=== PATIENT | male | born 2000 | race Caucasian/White ===

== ENCOUNTER 2023-09-28 19:45 | Emergency (ER) | payer OTHER, SELFPAY ==
[2023-09-28] VITALS (32 sets, daily range): BP systolic 80–115; BP diastolic 47–74; PULSE 63–88; RESP 16–18; TEMP 36.9; O2SAT 94–100; BMI 19.5
--- NOTE | 2023-09-28 20:09 | ED_ITS ---
HPI - General Adult General Date Seen: 09/28/23 Chief complaint: Seizure Stated complaint: Seizure Time Seen by Provider: 09/28/23 20:06 History of Present Illness HPI narrative: This is a 23-year-old gentleman with a known history of a seizure disorder, also left ear deafness, right-sided hemiplegic cerebral palsy, presenting to the ER today by EMS after a generalized tonic-clonic seizure. The patient does have a known seizure disorder. He rarely has generalized seizures. His last ?big? seizure was in April. Prior to that he had not had a generalized seizure in a couple of years. He was at home, and his family living room this evening when he had a seizure. This seizure lasted about 13 minutes. Family did hit his typical seizures care and safety precautions. Since the seizure was not stopping they gave him 3 doses of his rescue medication (clonazepam). After the seizure stopped he was initially confused and drowsy and postictal. He also had trouble moving his right arm after the seizure. This is not been seen with his other seizures. His parents called 911 because of the right arm weakness and the length of his seizure. He did not fall or injure himself during the seizure. By the time paramedics arrived the patient was still drowsy but improving. He was moving his right arm symmetrically with the left. Blood sugar was 90. In route he has been stable and has had steady improvement in his mental status. He is complaining of a headache which is typical for him after he has a seizure. No other injuries or pain. He has not had any recent fever. No recent illness. No vomiting or diarrhea. In addition to his generalized seizures he also experiences much more frequent absent seizures. It sounds like these can happen a couple of times a day or sometimes a couple of times a week. He is working with his neurology team at [facility] to manage the absence seizures. They are in the process of weaning him down off Breviac and weaning him up on lacosamide. He has been doing the weaning and initiation process over the past 4 months. He is also on Xcopri and he has not changed the dose of that medication lately. He believes he has been taking all of his prescribed medications. Dad has his pill organized her with him. There is not actually any Xcopri in the slots for this week but he was due to restocking his organizer gwendolyn. It is unclear whether not he remember to take his Xcopri the past couple of days or if he for got. Related Data Home Medications Medication Instructions Recorded Confirmed brivaracetam 100 mg tablet 100 mg PO BID 05/19/23 05/19/23 (Briviact) cenobamate 200 mg tablet (Xcopri) 200 mg PO BID 05/19/23 05/19/23 Previous Rx's Medication Instructions Recorded azithromycin 500 mg tablet 500 mg PO QDAY #3 tabs 05/19/23 prochlorperazine maleate 10 mg 10 mg PO TID PRN #10 tabs 09/29/23 tablet (Compazine) Allergies Allergy/AdvReac Type Severity Reaction Status Date / Time No Known Drug Allergies Allergy Verified 05/19/23 09:27 [facility] Medical History (Updated 09/29/23 @ 00:45 by Kj Burch MD) History of bacterial meningitis ?Z86.61 - Personal history of infections of the central nervous system (ICD- 10) Surgical History (Updated 04/28/23 @ 09:37 by Rajni Cano) History of hernia repair ?Z98.890 - Other specified postprocedural states (ICD-10) ?Z87.19 - Personal history of other diseases of the digestive system (ICD-10) History of placement of ear tubes ?Z96.22 - Myringotomy tube(s) status (ICD-10) Acquired cavovarus deformity of right foot (09/09/10) ?M21.6X1 - Other acquired deformities of right foot (ICD-10) History of ventriculoperitoneal shunting ?Z92.89 - Personal history of other medical treatment (ICD-10) Exam Narrative: Exam Narrative: Primary Survey: A- patent. Speaking clearly. Phonation normal. No stridor. B- breathing easily. Lung sounds clear and equal. Oxygen saturation normal on room air C- no active bleeding. Blood pressure stable. Symmetric pulses and cap refill in 4 extremities. D- alert and oriented x3. GCS 15. No focal deficits. Constitutional: Appears well-developed and well-nourished. Alert. Conversant. Non toxic. HENT: Head: Atraumatic. Nose: Nose normal. Mouth/Throat: Oral mucosa is clear and moist. no trismus. Pharynx normal. Tonsils symmetric. No tonsillar enlargement, erythema, or exudate. Eyes: Complaining of light sensitivity and photophobia so we turned the lights in his room off. Conjunctivae normal. EOM normal. Pupils equal, round, and reactive to light. No scleral icterus. Neck: Normal range of motion. Neck supple. No tracheal deviation present. Cardiovascular: Normal rate, regular rhythm. No gallop. No friction rub. No murmur heard. Symmetric radial artery pulses Pulmonary/Chest: Effort normal. No stridor. No respiratory distress. No wheezes. No rales. No rhonchi . No tenderness. Abdominal: Soft. No distension. No mass. No tenderness. No rebound. No guarding. Musculoskeletal: RUE: Normal range of motion. No tenderness. No deformity LUE: Normal range of motion. No tenderness. No deformity RLE: Normal range of motion. No edema. No tenderness. No deformity LLE: Normal range of motion. No edema. No tenderness. No deformity Lymph: No cervical adenopathy. Neurological: Mental status normal. Attention normal. Alert and oriented x3. GCS 15. Memory normal. Speech fluent. Cognition normal. Cranial Nerves intact II-XII except I did not formally test gag or visual acuity . EOMI. Palate elevates symmetrically and tongue protrudes in the midline. Strength: 5/5 trapezius on the right and left 5/5 deltoid on the right and left 5/5 biceps on the right and left 5/5 triceps on the right and left 5/5 memorial mason on the right and left 5/5 thumb opposition on the right and le ft 5/5 finger abduction on the right and le ft 5/5 hip flexors (L3) on the right and le ft 5/5 quadriceps (L4) on the right and lef t 5/5 tibialis anterior on the right and l eft 5/5 EHL (L5) on the right and left 5/5 gastrocnemius (S1) on the right and left 5/5 hamstring on the right and left Sensation intact to light touch in both upper extremities (C4-T1) Sensation intact to light touch in Both lower extremities (L4-S1). Finger to nose and coordination normal. Skin: Skin is warm and dry. No rash noted. No pallor. Normal capillary refill. Psychiatric: Normal mood. Normal affect. Const: Vital Signs, click to edit/add: Vital Signs - 24 hr 09/28/23 19:49 09/28/23 19:59 09/28/23 20:00 Temperature 98.5 F Pulse Rate 80 77 Pulse Rate [Left P ulse Oximeter] 79 Respiratory Rate 18 Blood Pressure Blood Pressure [Ri ght Upper Arm] 115/66 Pulse Oximetry 100 100 100 Oxygen Delivery Vt thod Room Air 09/28/23 20:02 09/28/23 20:15 09/28/23 20:33 Temperature Pulse Rate 77 77 70 Pulse Rate [Left P ulse Oximeter] Respiratory Rate Blood Pressure 108/68 92/72 Blood Pressure [Ri ght Upper Arm] Pulse Oximetry 100 100 100 Oxygen Delivery Me thod 09/28/23 20:34 09/28/23 20:42 09/28/23 20:51 Temperature Pulse Rate 72 65 Pulse Rate [Left P ulse Oximeter] Respiratory Rate Blood Pressure 94/65 Blood Pressure [Ri ght Upper Arm] Pulse Oximetry 100 100 Oxygen Delivery Vt thod 09/28/23 21:00 09/28/23 21:02 09/28/23 21:15 Temperature Pulse Rate 72 66 66 Pulse Rate [Left P ulse Oximeter] Respiratory Rate Blood Pressure 105/65 Blood Pressure [Ri ght Upper Arm] Pulse Oximetry 100 100 96 Oxygen Delivery Vt thod 09/28/23 21:22 09/28/23 21:30 09/28/23 21:41 Temperature Pulse Rate 66 67 77 Pulse Rate [Left P ulse Oximeter] Respiratory Rate Blood Pressure 104/68 99/74 Blood Pressure [Ri ght Upper Arm] Pulse Oximetry 94 98 100 Oxygen Delivery Vt thod 09/28/23 21:45 09/28/23 22:00 09/28/23 22:02 Temperature Pulse Rate 69 67 68 Pulse Rate [Left P ulse Oximeter] Respiratory Rate Blood Pressure 105/71 Blood Pressure [Ri ght Upper Arm] Pulse Oximetry 100 99 97 Oxygen Delivery Vt thod 09/28/23 22:15 09/28/23 22:22 09/28/23 22:30 Temperature Pulse Rate 63 70 68 Pulse Rate [Left P ulse Oximeter] Respiratory Rate Blood Pressure 109/73 Blood Pressure [Ri ght Upper Arm] Pulse Oximetry 96 97 96 Oxygen Delivery Vt thod 09/28/23 22:42 09/28/23 22:45 09/28/23 23:09 Temperature Pulse Rate 69 67 Pulse Rate [Left P ulse Oximeter] Respiratory Rate 16 Blood Pressure Blood Pressure [Ri ght Upper Arm] Pulse Oximetry 97 96 Oxygen Delivery Me thod Course Course ED Course: Patient arrived by EMS and was roomed to ER bed 6. History was taken from paramedics as he arrived. Patient was alert. No seizure activity. No focal deficits. Previously noted right upper extremity weakness had resolved. Postictal phase seemed to be clearing. He was complaining of a headache and nausea, photophobia. Discussed with Neurology, Dr. Hinds, from [facility]. He would recommend that since the patient has recovered from his generalized tonic-clonic seizure and and is now recovering from postictal spell it is safe to discharge home with outpatient follow-up for medication adjustment. Would not recommend any additional medication adjustments while the patient is here in the ER. He wants us to be sure the patient receives his typical evening dose of anti epileptics while he is in the ER Due to nausea he was not able to take oral ibuprofen so we gave him Toradol and IV Zofran. With this nausea was somewhat improved but he still had ongoing headache. He was able to tolerate all of his home medications. No further vomiting. Reevaluation(s) Reevaluation #1: Recheck-parents now arrived. Additional history obtained from them. Still having headache. Says this is typical for him after he has a generalized tonic clonic seizure. Nothing unusual about the headache. No stiff neck. No fever. Discussed options for treating the headache. He agreed to try Compazine/Benadryl Recheck-starting to feel better. Reevaluation #2: Recheck-headache improved. Feeling much better. He has been here in the ER now for over 4 hours without any recurrent seizure activity. Patient requesting discharge. He and his mother are comfortable with discharging . They will follow-up outpatient with their neurology team at [facility]. Vital Signs Vital signs: Initial Vital Signs Temperature 98.5 F 09/28/23 19:49 Temperature Source Temporal Artery Scan 09/28/23 19:49 Pulse Rate 79 09/28/23 19:49 Pulse Rhythm Regular 09/28/23 19:49 Respiratory Rate 18 09/28/23 19:49 Blood Pressure 115/66 09/28/23 19:49 Blood Pressure Mean 82 09/28/23 19:49 Blood Pressure Position Semi-Fowlers 09/28/23 19:49 Pulse Oximetry 100 09/28/23 19:49 Oxygen Delivery Method Room Air 09/28/23 19:49 Vital Signs Temperature 98.5 F 09/28/23 19:49 Pulse Rate 79 09/28/23 19:49 Respiratory Rate 18 09/28/23 19:49 Blood Pressure 115/66 09/28/23 19:49 Pulse Oximetry 100 09/28/23 19:49 Oxygen Delivery Method Room Air 09/28/23 19:49 Temperature 98.5 F 09/28/23 19:49 Pulse Rate 67 09/28/23 22:45 Respiratory Rate 16 09/28/23 23:09 Blood Pressure 109/73 09/28/23 22:22 Pulse Oximetry 96 09/28/23 22:45 Oxygen Delivery Method Room Air 09/28/23 19:49 Medications Administered Medications: Discontinued Medications Generic Name Dose Route Start Last Admin Trade Name Freq PRN Reason Stop Dose Admin Diphenhydramine HCl 12.5 mg 09/28/23 21:50 09/28/23 22:06 Diphenhydramine 50 Mg/Ml Inj IVP 09/28/23 21:51 12.5 mg ONCE ONE Administration Ibuprofen 600 mg 09/28/23 20:06 09/28/23 20:25 Ibuprofen 600 Mg Tablet PO 09/28/23 20:07 Not Given ONCE ONE Ketorolac Tromethamine 15 mg 09/28/23 20:24 09/28/23 20:33 Ketorolac 15 Mg/Ml Inj IVP 09/28/23 20:25 15 mg ONCE ONE Administration Ondansetron HCl 4 mg 09/28/23 20:13 09/28/23 20:19 Ondansetron 2 Mg/Ml Inj IVP 09/28/23 20:14 4 mg ONCE ONE Administration Prochlorperazine 10 mg 09/28/23 21:50 09/28/23 22:07 Prochlorperazine 5 Mg/Ml Vial IV 09/28/23 21:51 10 mg ONCE ONE Administration Medical Decision Making MDM Narrative Medical decision making narrative: Pleasant 23-year-old gentleman with a known history of seizure disorder presenting to the ER today by EMS with a fairly long 13 minute generalized tonic-clonic seizure. He was treated 3 doses of his typical rescue benzodiazepine by his parents and seizure activity had resolved prior to EMS arrival. He was initially postictal and having what appeared to be Damion's paralysis with weakness of his right upper extremity but those symptoms have resolved here in the ER. At this point I do not think he needs neuro imaging or MRI to look for stroke with no ongoing neuro deficits. No ongoing seizure activity while here in the ER. Observed for 4-1/2 hours. We are not able to obtain med levels for any of his medications in our lab that would come back to to us tonight. Consult was made with history Neurology team through [facility]. Although he had recovered from his seizure and was regaining his mental status by the time he arrived to the ER, he was still complaining of headache and nausea. Differential for this would be broad including intracranial injury from the seizure, spontaneous ICH, malfunction of MIRROR FABRICATION SUPERVISOR shunt, meningitis, among others. However the patient strongly endorse that it is typical for him to get a headache like this after seizure. We treated his headache with Toradol, then Compazine and Benadryl with good resolution. We observed the patient for several hours. Headache and nausea have resolved. He feels back to baseline. At this point would hold off on further workup with head CT, spinal tap, laps at this point, given resolve symptoms. He will follow-up tomorrow by phone with his neurology team at [facility]. Discharge Plan Discharge Clinical Impression: Epileptic seizure, Headache Patient Disposition: Home, Self-Care Condition: Stable Instructions: Epilepsy (DC) Additional Instructions: Please continue on your seizure medications tonight and in the morning. Call your neurologist at [place] tomorrow morning to discuss this seizure and discuss your current medications switch. Your neurologist can make recommendations about what to do with your seizure medications and dosings. If you have recurrent headache, nausea or vomiting, any fever, confusion, any more seizure activity, or any problems, please come back to the ER or see your neurologist right away. Prescriptions: New prochlorperazine maleate [Compazine] 10 mg tablet 10 mg PO TID PRNQty: 10 0RF No Action Briviact 100 mg tablet 100 mg PO BID Xcopri 200 mg tablet 200 mg PO BID azithromycin 500 mg tablet 500 mg PO QDAY Qty: 3 0RF Rx Instructions: For self-treatment of traveller's diarrhea not helped with over the counter medications Follow Up/Referrals: Rome Thomas MD [Primary Care Provider] - Stand Alone Forms: [employer] Info Instructions
--- OUTSIDE RECORDS SUMMARY | 2023-09-28 20:18 | XMS_ITS | Referral Summary ---
Author Name Unknown Organization [facility] Address [address] [place] [id number] Care Team Providers Care Wood Machinist Name Role Phone Elsewhere, Pcp Primary Care Provider Unavailabl e Source Comments Patient records contain information from all sites at [facility]. For routine questions regarding patient records, call [phone] during business hours, M-F 8:00 AM - 5:00 PM Central Time. Record requests for emergency care only can be directed to [phone] at any time.[facility] Encounters Date Type Department Care Team Description 09/22/2023 Refill Department of Neurology in [address] [id number] Rome Rg M.D. Med Refill 09/13/2023 Clinical Communication Department of Neurology in [address] [phone] Rome Rg M.D. briviact 07/05/2023 4:00 PM MANAGER TERMINAL Office Visit Department of Neurology in [address] [phone] Rome Rg M.D. 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 Active Xcopri 200 mg tabletIndications:Foc al Complex Partial Epilepsy Intractable With Status Epilepticus (HCC) TAKE TWO TABLETS (400mg) BY MOUTH DAILY 180 tablet 3 01/03/2023 Active Briviact 100 mg tablet tabletIndications:Foc al Epilepsy Symptomatic Not Intractable With Status Epilepticus (HCC) TAKE ONE TABLET BY MOUTH TWICE DAILY 180 tablet 3 01/03/2023 Active clonazePAM (KlonoPIN) 0.25 mg disintegrating tabletIndications:Foc al Complex Partial Epilepsy Intractable With Status Epilepticus (HCC) As needed, take 2 tablets for prolonged seizures > 3 minutes. May repeat same dose once if seizure persists an additional 5 minutes. 10 tablet 3 05/02/2023 Active lacosamide (Vimpat) 50 mg tabletIndications:Foc al Epilepsy Symptomatic Intractable With Status Epilepticus (HCC) Wk1- 1 tab nightly; Wk2- 1 tab twice daily; Wk3- 1 tab AM, 2 tabs night; Wk4- 2 tabs twice daily; Wk5-3 tabs twice daily. Wk6- switch to 200 mg tablets, 1 tab twice daily 112 tablet 08/18/2023 Active lacosamide (Vimpat) 200 mg tabletIndications:Foc al Epilepsy Symptomatic Intractable With Status Epilepticus (HCC) 1 tablet twice daily. To be used after completing 50 mg Prescription. 180 tablet 3 08/18/2023 Active brivaracetam (Briviact) 50 mg tabletIndications:Foc al Epilepsy Symptomatic Intractable With Status Epilepticus (HCC) While increasing lacosamide, taper Briviact. 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 No 07/02/2023 Humiliation, Afraid, Rape, and Kick questionnair e Answer Date Recorded Within the last year, have y ou been afraid of your partner or ex-partner? No 12/28/2021 Within the last year, have y ou been humiliated or emotionally abused in other ways by your partner or ex-partner? No Within the last year, have y ou been kicked, hit, slapped, or otherwise physically hurt by your partner or ex-partner? No 12/28/2021 Within the last year, have y ou been raped or forced to have any kind of sexual activity by your partner or ex-partner? No 12/28/2021 Social Connection and Isolation Panel [NHANES] A nswer Date Recorded In a typical week, how many times do you talk on the phone with family, friends, or neighbors? Twice a week 12/28/2021 How often do you get togethe r with friends or relatives? Twice a week 12/28/2021 How often do you attend judaism or taoism serv ices? Never 12/28/2021 Do you belong to any clubs o r organizations such as judaism groups, unions, fraternal or athletic groups, or school groups? No 12/28/2021 How often do you attend meet ings of the clubs or organizations you belong to? Patient declined 12/28/2021 Are you , , di vorced, , never , or living with a partner? Patient declined 12/28/2021 AUDIT-C Answer Date Recorded Q1: How often do you have a drink containing alc ohol? Never 12/28/2021 Average Number of Drinks Not on file 022 Frequency of Binge Drinking Not on file 12/14 Overall Financial Resource Strain (CARDIA) Answe r Date Recorded How hard is it for you to pa y for the very basics like food, housing, medical care, and heating? Not hard at all 12/28/2021 PHQ-2 Answer Date Recorded PHQ-2 Score 0 10/25/2018 [facility] of Occupat ional Health - Occupational Stress Questionnaire Answer Date Recorded Do you feel stress - tense, restless, nervous, or anxious, or unable to sleep at night because your mind is troubled all the time - these days? Not at all 12/28/2021 Exercise Vital Sign Answer Date Recorde d On average, how many days pe r week do you engage in moderate to strenuous exercise (like a brisk walk)? 5 days 07/02/2023 On average, how many minutes do you engage in exercise at this level? 30 min 07/02/2023 Hunger Vital Sign Answer Date Recorded Within the past 12 months, y ou worried that your food would run out before you got the money to buy more. Never true 07/02/19 24 Within the past 12 months, t he food you bought just didn't last and you didn't have money to get more. Never true 07/02/2023 PRAPARE - Transportation Answer Date Re corded In the past 12 months, has l ack of transportation kept you from medical appointments or from getting medications? No 06/16 In the past 12 months, has l ack of transportation kept you from meetings, work, or from getting things needed for daily living? No 07/02/2023 Nutrition Answer Date Recorded Nutrition: EVOO Fat Source No 07/02 On average, how many serving s of fruits and vegetables do you eat per day (serving size is equal to 1 cup or approximately the size of a tennis ball)? 3-5 07/02/2023 Dental Answer Date Recorded Dental: Regular Dentist Yes 05/12/20 Employment Answer Date Recorded Employment status Unemployed/not in th e paid workforce but seeking employment 07/02/2023 Housing Stability Answer Date Recorded What is your living situation today? I have a [facility] place to live 07/02/2023 Education Answer Date Recorded What is the highest level of school you have completed or the highest degree you have received? 12th grade 12/28/2021 Sex and Gender Information Value Date Recorded Sex Assigned at Male 05/17/2018 12:10 PM MANAGER TERMINAL Gender Identity Male 05/17/2018 12:10 PM MANAGER TERMINAL Sexual Orientation Straight 05/17/2018 12 :10 PM MANAGER TERMINAL Last Filed Vital Signs Vital Sign Reading Time Taken Comments Blood Pressure 107/70 12/31/2020 9:00 AM CDT Pulse 70 12/31/2020 9:00 AM CDT Temperature 35.6 ??C (96.1 ??F) 07/05/2023 3:46 PM CS T Respiratory Rate 16 12/31/2020 9:00 AM CDT Oxygen Saturation 100% 12/31/2020 9:00 AM CDT Inhaled Oxygen Concentration - - Weight 62 kg (136 lb 11 oz) 07/05/2023 3:[address] Height 180 cm (5' 10.87) 07/05/2023 3:46 PM MANAGER TERMINAL Body Mass Index 19.14 07/05/2023 3:46 PM MANAGER TERMINAL Plan of Treatment Upcoming Encounters Date Type Department Care Team (Latest Contact Info) Description 10/21/2023 1:15 PM CDT Clinical Communication Virtual Review in [place], [place] [address] [place] [address] 10/24/2023 2:00 PM CDT Clinical Support Department of Neurology in [address] [phone] Rome Rg M.D. [address] [place] [phone] 11/23/2023 3:00 PM CDT Office Visit Department of Neurology in [address] [phone] Rome Rg M.D. [address] [place] [phone] Medical Devices Implanted Type Area Waiter/Waitress Cocktail Lounge Device Identifier Shelf Expiration Date Model / Serial / Lot [employer] Shunt Implanted:04/04 (Quantity not on file) Shunt Other Brain Description:COURTESY CLERK Shunt Advance Directives For more information, please contact: [phone] * Full Code (Latest Code Status on File) Date Activated Date Inactivated Comments 12/30/2020 8:19 AM 12/31/2020 2:28 PM Question Answer Comments Full Code: Discussed Care Teams Wood Machinist Relationship Specialty Start Date End Date Elsewhere, Pcp PCP - General Family Medicine 06/30/23
--- OUTSIDE RECORDS SUMMARY | 2023-09-28 20:18 | XMS_ITS | Encounter Summary ---
Author Name Unknown Organization [facility] Address [address] [place] [address] Care Team Providers Care Production Control Scheduler Name Role Phone Elsewhere, Pcp Primary Care Provider Unavailabl e Reason for Visit * Reason Onset Date Comments briviact 09/13/2023 Encounter Details Date Type Department Care Team (Late st Contact Info) Description 09/13/2023 Clinical Communication Department of Neurology in [place], [place] [address] [place] [phone] Rome Rg M.D. [address] [place] [address] briviact Social History Tobacco Use Types Packs/Day Years Used Date Smoking Tobacco: Never Smokeless Tobacco: Never Alcohol Use Standard Drinks/Week Comments No 0 (1 standard drink = 0.6 oz pur e alcohol) [facility] Utilities Answer Date Recorded In the past 12 months has [facility] [employer], gas, oil, or water [employer] threatened to shut off services in your [...] week 12/28/2021 How often do you attend scientology or rastafari serv ices? Never 12/28/2021 Do you belong to any clubs o r organizations such as scientology groups, unions, fraternal or athletic groups, or [...] Answer Date Recorded PHQ-2 Score 0 10/25/2018 [facility] Occupat [facility] - Occupational Stress Questionnaire Answer Date Recorded [...] your living situation today? I have a [facility] place to live 07/02/2023 Education Answer Date Recorded What is the highest level of school you have completed or the highest degree you have received? 12th grade 12/28/2021 Sex and Gender Information Value Date Recorded Sex Assigned at Male 05/17/2018 12:10 PM DIMENSION SPECIFICATION INSPECTOR Gender Identity Male 05/17/2018 12:10 PM DIMENSION SPECIFICATION INSPECTOR Sexual Orientation Straight 05/17/2018 12 :10 PM DIMENSION SPECIFICATION INSPECTOR documented as of this encounter Miscellaneous Notes * Telephone Encounter - Dhara Robledo RClovisN. - 09/13/2023 1:26 PM CDT I contacted the pharmacy and reviewed Dr. Skinner's recommendations. documented in this encounter Plan of Treatment Upcoming Encounters Date Type Department Care Team (Latest Contact Info) Description 10/21/2023 1:15 PM CDT Clinical Communication Virtual Review in [place], [place] 200 [place] [address] 10/24/2023 2:00 PM CDT Clinical Support Department of Neurology in [place], [place] [address] [place] [phone] Rome Rg M.D. [address] [place] [phone] 11/23/2023 3:00 PM CDT Office Visit Department of Neurology in [place], [place] [address] [place] [address] Rome Rg M.D. [address] [place] [address] documented as of this encounter Visit Diagnoses Not on filedocumented in this encounter Additional Health Concerns Assessment Noted Time PHQ-9 Depression Total Score: 0 11/23/19 19 10:54 AM CDT documented as of this encounter Care Teams Production Control Scheduler Relationship Specialty Start Date End Date Elsewhere, Pcp PCP - General Family Medicine 06/30/23 documented as of this encounter
--- OUTSIDE RECORDS SUMMARY | 2023-09-28 20:18 | XMS_ITS | Encounter Summary ---
Author Name Unknown Organization [facility] Address [address] [place] [address] Care Team Providers Care Branch Credit Counselor Name Role Phone Elsewhere, Pcp Primary Care Provider Unavailabl e Reason for Visit * Reason Onset Date Comments Pre-visit Intake 06/30/2023 Encounter Details Date Type Department Care Team (Latest Contact Info) Description 06/30/2023 9:00 AM SURFACE WATER TECHNICIAN Clinical Communication Virtual Review in [place], [place] 200 [place] [address] Pre-visit Intake Social History Tobacco Use Types Packs/Day Years Used Date Smoking Tobacco: Never Smokeless Tobacco: Never Tobacco Cessation:Counseling Given: Not Answered Alcohol Use Standard Drinks/Week Comments No 0 (1 standard drink = 0.6 oz pur e alcohol) Humiliation, Afraid, Rape, and Kick questionnair e [...] week 12/28/2021 How often do you attend protestant or hoahaoism serv ices? Never 12/28/2021 Do you belong to any clubs o r organizations such as protestant groups, unions, fraternal or athletic groups, or [...] Answer Date Recorded PHQ-2 Score 0 10/25/2018 [facility]at ional [facility] - Occupational Stress [...] to strenuous exercise (like a brisk walk)? 6 days 12/28/2021 On average, how many minutes do you engage in exercise at this level? 120 min 12/28/2021 Hunger Vital Sign Answer Date Recorded Within the past 12 months, y ou worried that your food would run out before you got the money to buy more. Patient declined Within the past 12 months, t he food you bought just didn't last and you didn't have money to get more. Patient declined 03/2021 PRAPARE - Transportation Answer Date Re corded In the past 12 months, has l ack of transportation kept you from medical appointments or from getting medications? No 12/14 In the past 12 months, has l ack of transportation kept you from meetings, work, or from getting things needed for daily living? No 12/28/2021 Housing Stability Vital Sign Answer Jim e Recorded In the last 12 months, was t here a time when you were not able to pay the mortgage or rent on time? Patient refused 12/29/19 In the last 12 months, how many places have you lived? 2 12/28/2021 In the last 12 months, was t here a time when you did not have a steady place to sleep or slept in a nursing home (including now)? No 12/28/2021 Nutrition Answer Date Recorded Nutrition: EVOO Fat Source No 12/28 On average, how many serving s of fruits and vegetables do you eat per day (serving size is equal to 1 cup or approximately the size of a tennis ball)? 2-3 12/28/2021 Dental Answer Date Recorded Dental: Regular Dentist Yes 05/12/20 Employment Answer Date Recorded Employment status Employed and actively working without restrictions 12/28/2021 Education Answer Date Recorded What is the highest level of school you have completed or the highest degree you have received? 12th grade 12/28/2021 Sex and Gender Information Value Date Recorded Sex Assigned at Male 05/17/2018 12:10 PM SURFACE WATER TECHNICIAN Gender Identity Male 05/17/2018 12:10 PM SURFACE WATER TECHNICIAN Sexual Orientation Straight 05/17/2018 12 :10 PM SURFACE WATER TECHNICIAN documented as of this encounter Plan of Treatment Upcoming Encounters Date Type Department Care Team (Latest Contact Info) Description 10/21/2023 1:15 PM CDT Clinical Communication Virtual Review in [place], [place] 200 [place] [address] 10/24/2023 2:00 PM CDT Clinical Support Department of Neurology in [place], [place] [address] [place] [phone] Rome Rg M.D. [address] [place] [phone] 11/23/2023 3:00 PM CDT Office Visit Department of Neurology in [address] [phone] Rome Rg M.D. [address] [place] [phone] documented as of this encounter Visit Diagnoses Not on filedocumented in this encounter Additional Health Concerns Assessment Noted Time PHQ-9 Depression Total Score: 0 11/23/19 19 10:54 AM CDT documented as of this encounter Care Teams Branch Credit Counselor Relationship Specialty Start Date End Date Elsewhere, Pcp PCP - General Family Medicine 06/30/23 documented as of this encounter
--- OUTSIDE RECORDS SUMMARY | 2023-09-28 20:18 | XMS_ITS | Clinical Summary ---
Author Name Unknown Organization [facility] Address [address] [place] [address] Care Team Providers Care Flute Grinder Name Role Phone Elsewhere, Pcp Primary Care Provider Unavailabl e Source Comments Patient records contain information from all sites at [facility]. For routine questions regarding patient records, call [phone] during business hours, M-F 8:00 AM - 5:00 PM Central Time. 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 Med Refill 09/13/2023 Clinical Communication Department of Neurology in [address] [phone] Isaiah Rg M.D. briviact 07/05/2023 4:00 PM WOODWORKING MACHINIST Office Visit Department of Neurology in [address] [phone] Isaiah Rg M.D. 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) 06/30/2023 9:00 AM WOODWORKING MACHINIST Clinical Communication Virtual Review in [address] [phone] Pre-visit Intake from Last 3 Months Family History Medical History Relation Name Comments Asthma Father isaiah Prostate cancer Father isaiah Hypertension Father's Brother Diego Parkinsonism Father's Sister Lesa Colon cancer Maternal Grandfather Lupillo Arthritis Paternal Grandfather Don Hypertension Paternal Grandfather Don Arthritis Paternal Grandmother Qi Bleeding Disorder Paternal Grandmother Qi Diabetes Paternal Grandmother Qi Hyperlipidemia Paternal Grandmother Qi Relation Name Status Comments Father isaiah Father's Brother Diego Father's Sister Lesa Maternal Grandfather Lupillo Paternal Grandfather Don Paternal Grandmother Qi Social History Tobacco Use Types Packs/Day Years Used Date Smoking Tobacco: Never Smokeless Tobacco: Never Tobacco Cessation:Counseling Given: Not Answered Alcohol Use Standard Drinks/Week Comments No 0 (1 standard drink = 0.6 oz pur e alcohol) [facility] Utilities Answer Date Recorded In the past 12 months has e [employer], gas, oil, or water [employer] threatened to shut off services in your [...] week 12/28/2021 How often do you attend quaker or uatsdin serv ices? Never 12/28/2021 Do you belong to any clubs o r organizations such as quaker groups, unions, fraternal or athletic groups, or [...] Answer Date Recorded PHQ-2 Score 0 10/25/2018 [facility] Occupat ional Health - Occupational Stress [...] your living situation today? I have a [facility] place to live 07/02/2023 Education Answer Date Recorded What is the highest level of school you have completed or the highest degree you have received? 12th grade 12/28/2021 Sex and Gender Information Value Date Recorded Sex Assigned at Male 05/17/2018 12:10 PM WOODWORKING MACHINIST Gender Identity Male 05/17/2018 12:10 PM WOODWORKING MACHINIST Sexual Orientation Straight 05/17/2018 12 :10 PM WOODWORKING MACHINIST Last Filed Vital Signs Vital Sign Reading [...] 180 cm (5' 10.87) 07/05/2023 3:46 PM WOODWORKING MACHINIST Body Mass Index 19.14 07/05/2023 3:46 PM WOODWORKING MACHINIST Plan of Treatment Upcoming Encounters Date Type Department Care Team (Latest Contact Info) Description 10/21/2023 1:15 PM CDT Clinical Communication Virtual Review in [place], [place] 200 [place] [address] 10/24/2023 2:00 PM CDT Clinical Support Department of Neurology in [address] [phone] Isaiah Rg M.D. [address] [place] [phone] 11/23/2023 3:00 PM CDT Office Visit Department of Neurology in [address] [phone] Isaiah Rg M.D. [address] [place] [phone] Health Maintenance Due Date Last Done Comments Hepatitis C Screening 2000 COVID-19 Vaccine ( season) 2023 05/27/2022, 04/11/2021 Influenza Vaccine (#1) 2023 , 02/27/2019, 03/28/2018, Additional history exists Depression Screening (Annual PHQ-2) 05/16/2023 DTaP,Tdap,and Td Vaccines (8 - Td or Tdap) 05/19/2033 05/19/2023, 11/29/2012, 12/14/2005, Additional history exists Hepatitis B Vaccines Completed 08/15/2001, 2000, 2000 Pneumococcal vaccine (0-64 years) Aged Out 08/15/2001, 2000, 2000, Additional history exists No longer eligible based on patient's age to complete this topic HPV Vaccines Completed 05/21/2019, 10/15, 09/25/2018 Medical Devices Implanted Type Area Magnesium Mill Operator Device Identifier Shelf Expiration Date Model / Serial / Lot Pearl Glue Operator Shunt Implanted:04/04 (Quantity not on file) Shunt Other Brain Description:CLINICAL APPLICATION MANAGER Shunt Advance Directives For more information, please contact: [phone] * Full Code (Latest Code Status on File) Date Activated Date Inactivated Comments 12/30/2020 8:19 AM 12/31/2020 2:28 PM Question Answer Comments Full Code: Discussed Care Teams Flute Grinder Relationship Specialty Start Date End Date Elsewhere, Pcp PCP - General Family Medicine 06/30/23
--- OUTSIDE RECORDS SUMMARY | 2023-09-28 20:18 | XMS_ITS ---
Author Name Unknown Organization [facility] Address [address] [place] [address] Care Team Providers Care Uniform Maker Name Role Phone Unavailable Unavailable Unavailable Surgery Details Not on file Complications Check Surgery Details section. Procedure Estimated Blood Loss Check Surgery Details section. Procedure Findings Check Surgery Details section. Procedure Specimens Taken Check Surgery Details section.
--- OUTSIDE RECORDS SUMMARY | 2023-09-28 20:18 | XMS_ITS | Encounter Summary ---
Author Name Unknown Organization [facility] Address [address] [place] [address] Care Team Providers Care Steward/Stewardess Chief Cargo Vessel Name Role Phone Elsewhere, Pcp Primary Care Provider Unavailabl e Reason for Visit * Reason Comments Med Refill Encounter Details Date Type Department Care Team (Late st Contact Info) Description 09/22/2023 Refill Department of Neurology in [place], [place] [address] [place] [phone] Rome Rg M.D. [address] [place] [address] Med Refill Social History Tobacco Use Types Packs/Day Years Used Date Smoking Tobacco: Never Smokeless Tobacco: Never Alcohol Use Standard Drinks/Week Comments No 0 (1 standard drink = 0.6 oz pur e alcohol) [facility] Utilities Answer Date Recorded In the past 12 months has [facility] [employer], gas, oil, or water [employer]) threatened to shut off services in your [...] week 12/28/2021 How often do you attend yazdanism or hoahaoism serv ices? Never 12/28/2021 Do you belong to any clubs o r organizations such as yazdanism groups, unions, fraternal or athletic groups, or [...] Answer Date Recorded PHQ-2 Score 0 10/25/2018 [facility] of Occupat ional Health - [...] Answer Date Recorded Employment status Unemployed/not in e paid workforce but seeking employment 07/02/2023 Housing Stability Answer Date Recorded What is your living situation today? I have a [facility] place to live 07/02/2023 Education Answer Date Recorded What is the highest level of school you have completed or the highest degree you have received? 12th grade 12/28/2021 Sex and Gender Information Value Date Recorded Sex Assigned at Male 05/17/2018 12:10 PM GREEN BELT Gender Identity Male 05/17/2018 12:10 PM GREEN BELT Sexual Orientation Straight 05/17/2018 12 :10 PM GREEN BELT documented as of this encounter Plan of Treatment Upcoming Encounters Date Type Department Care Team (Latest Contact Info) Description 10/21/2023 1:15 PM CDT Clinical Communication Virtual Review in [place], [place] 200 [place] [address] 10/24/2023 2:00 PM CDT Clinical Support Department of Neurology in [place], [place] [address] [place] [phone] Rome Rg M.D. [address] [place] [phone] 11/23/2023 3:00 PM CDT Office Visit Department of Neurology in [place], [place] [address] [place] [phone] Rome Rg M.D. [address] [place] [phone] documented as of this encounter Visit Diagnoses Diagnosis Focal Epilepsy Symptomatic Intractable With Status Epilepticus (HCC) documented in this encounter Additional Health Concerns Assessment Noted Time PHQ-9 Depression Total Score: 0 11/23/19 19 10:54 AM CDT documented as of this encounter Care Teams Steward/Stewardess Chief Cargo Vessel Relationship Specialty Start Date End Date Elsewhere, Pcp PCP - General Family Medicine 06/30/23 documented as of this encounter
--- OUTSIDE RECORDS SUMMARY | 2023-09-28 20:18 | XMS_ITS | Encounter Summary ---
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 [address] [place] [phone] [facility] Referral ID Status Reason Start Date Expiration Date Visits Re quested Visits Authorized [id number] Closed 12/21/2022 12/20/2025 1 1 Encounter Details Date Type Department Care Team ([facility] st Contact Info) Description 07/05/2023 4:00 PM SHEET CUTTER Office Visit Department of Neurology in [place], [place] [address] [place] [phone] Rome Rg M.D. 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 Never 12/28/2021 Do you belong to any clubs o r organizations such as latter day groups, unions, fraternal or athletic groups, or [...] Answer Date Recorded PHQ-2 Score 0 10/25/2018 [facility] - Occupational Stress [...] your living situation today? I have a [facility] place to live 07/02/2023 Education Answer Date Recorded What is the highest level of school you have completed or the highest degree you have received? 12th grade 12/28/2021 Sex and Gender Information Value Date Recorded Sex Assigned at Male 05/17/2018 12:10 PM SHEET CUTTER Gender Identity Male 05/17/2018 12:10 PM SHEET CUTTER Sexual Orientation Straight 05/17/2018 12 :10 PM SHEET CUTTER documented as of this encounter Last Filed Vital Signs Vital Sign Reading Time Taken Comments Blood Pressure - - Pulse - - Temperature 35.6 ??C (96.1 ??F) 07/05/2023 3:46 PM CS T Respiratory Rate - - Oxygen Saturation - - Inhaled Oxygen Concentration - - Weight 62 kg (136 lb 11 oz) 07/05/2023 3:[address] Height 180 cm (5' 10.87) 07/05/2023 3:46 PM SHEET CUTTER Body Mass Index 19.14 07/05/2023 3:46 PM SHEET CUTTER documented in this encounter Progress Notes * Rome Rg M.D. 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 SEIZURE SEMIOLOGY Initial visit in Dr. Alarcon' clinic note 05/17/2018 for further details. Age of onset: . Controlled with phenobarbital x 1 year, then seizure free for another 3 years off AEDs. Initial seizure 1) Visual aura of brightly colored light, progressing to behavioral arrest, aphasia, facial twitching, swallowing, eye deviation, and then right arm movements. This could progress to a generalized tonic clonic seizure. These have not occurred for many years. Several years later, these events started after an attempted levetiracetam taper: 2) Bizarre speech, altered awareness and confusion, and involuntary right arm movements. Since cenobamate was added they have not seen the arm-movement motor aspect, just the cognitive aspect (essentially just spacing out). History of status epilepticus, often experiencing seizures of 30-45 minutes duration. Other paroxysms: 1) Non epileptic behavioral outbursts - inactive EPILEPSY EVALUATION Routine EEG: left temporal slowing and left temporal sharp waves (F7/T7). Repeat EEG showed left frontal (F3) spikes in 2019. Brain MRI: None performed recently. Don't have outside images ourselves. EMU in December 2020, recorded over a single day: Left-sided interictal discharges and slowing. 6 recorded seizures. The first 4 have earliest visible changes over the right, primarily temporal. However, the last 2 have a very nice clear rhythm leading in over the left posterior temporal head region (P7/P9) followed by the same pattern and evolution as the first 4. 24-hour ambulatory EEG May 2022 - no seizures 24-hour ambulatory EEG December 2022 - 2 seizures, left temporal PREVIOUS ANTI-SEIZURE MEDICATIONS 1) Phenobarbital - started as a x 1 year. Good efficacy. 2) Levetiracetam up to 1500 mg twice daily - on for many years, changed due to mood side effects. Infrequent seizures while taking it. 3) Depakote in childhood, father thinks he was still having seizures with it 4) Oxcarbazepine 1050 BID - continued seizures 5) Zonisamide - continued seizures (6 recorded in a day on EEG) Has also tried modified keto diet. CURRENT ANTI-SEIZURE MEDICATIONS 1) Briviact 100 mg b.i.d. 2) Cenobamate 200 mg twice daily (total dose since October 14, 2021) - seizure count on ambulatory recording reduced following introduction (6 in 24h vs 0-2 in 24h) Rescue med: clonazepam 0.5 mg ODT (reduced from 1 mg in December 2018 because of dizziness at higher dose) INTERVAL HISTORY He continues to have regular focal impaired awareness seizures (bland - primarily just blanking out) noticed by his parents at least every 3-4 days, per his father (here today). He himself does not recognize them, and based on prior recordings it is assumed that he has more that are not witnessed or personally recognized. He had a tonic-clonic seizure in April when sick with COVID, and that was a one-off event. He had a more prominent focal seizure last week when he was late getting medication in him. He's graduated from college and living at home. His mother notes that he gets tired at around 2pm. He says if he's active this is less of a problem. 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 Lacosamide, Fycompa, topiramate were all reviewed as potential medication changes in place of Briviact. We had previously discussed them at our last visit, as well. Side effects of each were reviewed. We also reviewed potential stimulation options with the understandingthat these are palliative. His quality of life is not significantly impacted by his seizures. Whilehe cannot drive, that is not new and he otherwise does not notice seizures. Most of the time peoplearound him may not notice them either. He's leery of the possibility of making a change and back-sliding into worse seizures, which he experienced in the past with a medication change. He had been seizure free, then had recurrence with tapering and was unable to get control back despite resuming medication. We also discussed tDCS. This would be a bit outside of the norm as an option as we have recorded more than 1 region of onset on past EEGs. He also has a programmable shunt, and I am not sure if that has a bearing on the ability to do tDCS. He's not inclined to make any medication exchanges. He will shift the cenobamate back to 400 mg at night only to see if that helps with daytime tiredness. He has some amount of interest in tDCS potentially. I'll reach out to my neuromodulation colleagues to see about the feasibility of that and will let him know the response in a portal message. We discussed a number of options. Those will be summarized below. Ultimately he opted to continue his current medications but he will split the cenobamate up and take 200 milligrams in the morning and 200 milligrams at night because they mostly notice seizures in the evening before he takes his nighttime dose. It does look like cenobamate has likely been helpful in his seizure frequency as he had6 recorded in the epilepsy monitoring unit in 24 hours in 2020 while on Briviact and zonisamide, and has not had nearly that many recorded in 24 hours again since starting cenobamate at that time. Hehad 1 ambulatory with none recorded in May of this past year, and to it is ambulatory earlier this summer. I would like to see the patient in 6 months with the following prescheduled tests: none. I spent 60 minutes face to face and non-face to face caring for the patient today. T CUTTER documented in this encounter Plan of Treatment Upcoming Encounters Date Type Department Care Team (Latest Contact Info) Description 10/21/2023 1:15 PM CDT Clinical Communication Virtual Review in [place], [place] 200 [place] [phone] 10/24/2023 2:00 PM CDT Clinical Support Department of Neurology in [place], [place] [address] [place] [phone] Rome Rg M.D. [address] [place] [phone] 11/23/2023 3:00 PM CDT Office Visit Department of Neurology in [address] [phone] Rome Rg M.D. 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
--- OUTSIDE RECORDS SUMMARY | 2023-09-28 20:18 | XMS_ITS | Clinical Summary ---
Author Name Unknown Organization [facility] Address [place], [place] [address] Care Team Providers Care Food And Nutrition Teacher Name Role Phone Damion Meraz Primary Care Provider [phone] Allergies No known active allergies Medications Medication Sig Dispensed Refills Start Date End Date Status clonazePAM (KLONOPIN) 1 mg disintegrating tablet DISSOLVE 1 TABLET IN MOUTH NEEDED FOR PROLONGED SEIZURES >3MIN. MAY REPEAT DOSE ONCE IF SEIZURE PERSISTS ANOTHER 5 MINUTES 12/13/2018 Active OXcarbazepine (TRILEPTAL) 300 mg tablet Take 2 tablets by mouth 2 times daily. 0 11/06/2019 Active brivaracetam (BRIVIACT) 100 mg tablet Take 1 tablet by mouth 2 times daily 12 hours apart. 0 11/06/2019 Active Active Problems Problem Noted Date Diagnosed Date Status post ventriculoperitoneal shunt 0 Overview: 03/21/2006 strata valve 2.5 station 12/08/2010 strata valve 2.5 station 12/14/2010 strata valve 1.5 station Seizure disorder Immunizations Name Administration Dates Next Due AMB Influenza, IIV3 (Age >=3 years)(Flu Clinic Only) 02/28/2013,03/13/2008 DT (Age < 7 years) 2000,2000 DTaP 12/14/2005,08/15/2001,03/02/2001 HIB-HepB (Comvax) 08/15/2001,2000,05/19/19 HPV 9 (Gardasil 9) 09/25/2018 Hepatitis A (Peds) 01/26/2013,07/03/2012 Inactivated Polio Vaccine 12/14/2005,,2000,05/19 Influenza A (H1N1), Inactivated 04/01/2009 Influenza Virus, Unspecified 02/10/2009 Influenza, IIV3 (Age 6-35 mos) 4,03/09/2011,04/10/2010,03/09,03/30/2002,02/28/2002 Influenza, IIV3 (Age >=3 years) 03/23/2007,04/20,02/26/2004 Influenza, IIV4 03/28/2018, 7,02/04/2016,03/14 MMR 12/14/2005,04/11/2001 Meningococcal Vaccine (Menveo) 10/05/2016,2013 Pneumococcal conj 7-Valent (Prevnar 7) 0 08/15/2001,2000,2000,05/20 Tdap 11/29/2012 Varicella Vaccine 02/23/2011,04/11/2001 Family History Medical History Relation Name Comments Cancer-pancreatic Father Good Health Father Good Health Mother Relation Name Status Comments Father Alive Mother Alive Social History Tobacco Use Types Packs/Day Years Used Date Smoking Tobacco: Never Smokeless Tobacco: Never Alcohol Use Standard Drinks/Week Comments No 0 (1 standard drink = 0.6 oz pur e alcohol) Social Connections Answer Date Recorded Frequency of Communication with Friends and Fami ly Not on file 05/16/2021 Financial Resource Strain Answer Date R ecorded Difficulty of Paying Living Expenses Not on file 05/16/2021 Difficulty of Paying Living Expenses Not on file 05/16/2021 Sex and Gender Information Value Date Recorded Sex Assigned at Not on file Gender Identity Not on file Sexual Orientation Not on file Obstetrics History Last Filed Vital Signs Vital Sign Reading Time Taken Comments Blood Pressure 112/62 11/06/2019 2:20 PM CDT Pulse 63 11/06/2019 2:20 PM CDT Temperature 37.1 ??C (98.7 ??F) 11/06/2019 2:20 PM CD T Respiratory Rate - - Oxygen Saturation - - Inhaled Oxygen Concentration - - Weight 58.1 kg (128 lb) 11/06/2019 2:20 PM CDT Height 180.3 cm (5' 11) 11/06/2019 2:20 PM CDT Body Mass Index 17.85 11/06/2019 2:20 PM CDT Plan of Treatment Health Maintenance Due Date Last Done Comments Depression screening for age 12+ 2012 HIV for age 15-65 2015 Hepatitis C screening for age 18-79 2018 HPV series for age 9-26 (2 - Male 3-dose series) 10/23/2018 09/25/2018 BMI (ht and wt on same day) for age 18+ 11/05/2020 11/06/2019 Tetanus booster 11/29/2022 11/29/2012 COVID-19 vaccine series ( season) 2023 Influenza for age 9-49 01/15/2024 8, 03/02/2017, 02/04/2016, Additional history exists Pneumococcal series for age 6-64 Aged Out 08/15/2001, 2000, 2000, Additional history exists No longer eligible based on patient's age to complete this topic Tdap Completed 11/29/2012 Care Teams Food And Nutrition Teacher Relationship Specialty Start Date End Date Damion Meraz DO [address] [place] [address] PCP - General 01/09/18
[2023-09-28] MEDS: ONDANSETRON 2 MG/ML inj 4 MG IVP (20:19)
[2023-09-28] MEDS: KETOROLAC 15 MG/ML inj IVP (20:33)
[2023-09-28] MEDS: diphenhydrAMINE 50 MG/ML inj 12.5 MG IVP (22:06)
[2023-09-28] MEDS: PROCHLORPERAZINE 5 MG/ML VIAL 10 MG IV (22:07)
== END 2023-09-29 00:55 | disposition home or self-care (01) ==
PROVIDERS: Emergency Provider Emergency Medicine; PCP Family Medicine
DX: G40.909 Epilepsy, unspecified, not intractable, without status epilepticus (principal); R51.9 Headache, unspecified
CPT/HCPCS: 96374; 96375; 99283; 99284; J0780; J1200; J1885; J2405

== ENCOUNTER 2023-10-18 14:18 | Outpatient (CLI) | payer OTHER, SELFPAY ==
--- OUTSIDE RECORDS SUMMARY | 2023-10-18 14:23 | XMS_ITS | Clinical Summary ---
Author Organization [facility] Address [address] [place] [address] Care Team Providers Care Lube Worker Name Role Phone Elsewhere, Pcp Primary Care Provider Unavailabl e Source Comments Patient records contain information from all sites at [facility]. For routine questions regarding patient records, call [phone] during business hours, M-F 8:00 AM - 5:00 PM Central Time. Record requests for emergency care only can be directed to [phone] at any time.[facility] Allergies Active Allergy Reactions Criticality Noted Date [...] Description 09/22/2023 Refill Department of Neurology in [place], [place] [address] [place] [address] Isaiah Rg M.D. Med Refill 09/13/2023 Clinical Communication Department of Neurology in [place], [place] [address] [place] [phone] Isaiah Rg M.D. briviact from Last 3 Months Family History Medical [...] drink = 0.6 oz pur e alcohol) [facility] Utilities Answer Date Recorded [...] week 12/28/2021 How often do you attend jainism or samaritan serv ices? Never 12/28/2021 Do you belong to any clubs o r organizations such as jainism groups, unions, fraternal or athletic groups, or [...] Answer Date Recorded PHQ-2 Score 0 10/25/2018 [facility] - Occupational Stress Questionnaire Answer Date Recorded [...] living situation today? I have a [facility] place to live 07/02/2023 Education Answer Date Recorded What is the highest level of school you have completed or the highest degree you have received? 12th grade 12/28/2021 Sex and Gender Information Value Date Recorded Sex Assigned at Male 05/17/2018 12:10 PM TREASURY DIRECTOR Gender Identity Male 05/17/2018 12:10 PM TREASURY DIRECTOR Sexual Orientation Straight 05/17/2018 12 :10 PM TREASURY DIRECTOR Last Filed Vital Signs Vital Sign Reading [...] 180 cm (5' 10.87) 07/05/2023 3:46 PM TREASURY DIRECTOR Body Mass Index 19.14 07/05/2023 3:46 PM TREASURY DIRECTOR Plan of Treatment Upcoming Encounters Date Type Department Care Team (Latest Contact Info) Description 10/21/2023 1:15 PM CDT Clinical Communication Virtual Review in [address] [phone] 10/24/2023 2:00 PM CDT Clinical Support Department of Neurology in [address] [phone] Isaiah Rg M.D. [address] [place] [phone] 11/23/2023 3:00 PM CDT Office Visit Department of Neurology in [address] [phone] Isaiah Rg M.D. [address] [place] [phone] Health Maintenance Due Date Last Done Comments Hepatitis C Screening 2000 COVID-19 Vaccine (2022- season) 2023 05/27/2022, 04/11/2021 Influenza Vaccine (#1) [...] 10/15, 09/25/2018 Medical Devices Implanted Type Area Early Childhood Special Educator Device Identifier Shelf Expiration Date Model / Serial / Lot Director Of Golf Shunt Implanted:04/04 (Quantity not on file) Shunt Other Brain Description:HIDE AND SKIN FLESHING MACHINE OPERATOR Shunt Advance Directives For more information, please contact: [phone] * Full Code (Latest Code Status on File) Date Activated Date Inactivated Comments 12/30/2020 8:19 AM 12/31/2020 2:28 PM Question Answer Comments Full Code: Discussed Care Teams Lube Worker Relationship Specialty Start Date End Date Elsewhere, Pcp PCP - General Family Medicine 06/30/23
--- OUTSIDE RECORDS SUMMARY | 2023-10-18 14:23 | XMS_ITS | Encounter Summary ---
Author Organization [facility] Address [address] [place] [phone] Care Team Providers Care Network Development Coordinator Name Role Phone Elsewhere, Pcp Primary Care Provider Unavailabl e Reason for Visit * Reason Onset Date Comments briviact 09/13/2023 Encounter Details Date Type Department Care Team (Late st Contact Info) Description 09/13/2023 Clinical Communication Department of Neurology in [place], [place] [address] [place] [phone] Rome Rg M.D. [address] [place] [phone] briviact Social History Tobacco Use Types Packs/Day Years Used Date Smoking Tobacco: Never Smokeless Tobacco: Never Alcohol Use Standard Drinks/Week Comments No 0 (1 standard drink = 0.6 oz pur e alcohol) [facility] Utilities Answer Date Recorded In the past 12 months has [facility] [employer], gas, oil, or water [employer] threatened to shut off services in your [...] week 12/28/2021 How often do you attend jewish or restorationism serv ices? Never 12/28/2021 Do you belong to any clubs o r organizations such as jewish groups, unions, fraternal or athletic groups, or [...] Answer Date Recorded PHQ-2 Score 0 10/25/2018 [facility] - Occupational [...] your living situation today? I have a [facility] place to live 07/02/2023 Education Answer Date Recorded What is the highest level of school you have completed or the highest degree you have received? 12th grade 12/28/2021 Sex and Gender Information Value Date Recorded Sex Assigned at Male 05/17/2018 12:10 PM LIBRARY SCIENCE PROFESSOR Gender Identity Male 05/17/2018 12:10 PM LIBRARY SCIENCE PROFESSOR Sexual Orientation Straight 05/17/2018 12 :10 PM LIBRARY SCIENCE PROFESSOR documented as of this encounter Miscellaneous Notes * Telephone Encounter - Dhara Robledo, RClovisN. - 09/13/2023 1:26 PM CDT I contacted the pharmacy and reviewed Dr. Skinner's recommendations. documented in this encounter Plan of Treatment Upcoming Encounters Date Type Department Care Team (Latest Contact Info) Description 10/21/2023 1:15 PM CDT Clinical Communication Virtual Review in [place], [place] 200 [place] [address] 10/24/2023 2:00 PM CDT Clinical Support Department of Neurology in [address] [phone] Rome Rg M.D. [address] [place] [phone] 11/23/2023 3:00 PM CDT Office Visit Department of Neurology in [place], [place] [address] [place] [address] Rome Rg M.D. [address] [place] [phone] documented as of this encounter Visit Diagnoses Not on filedocumented in this encounter Additional Health Concerns Assessment Noted Time PHQ-9 Depression Total Score: 0 11/23/19 19 10:54 AM CDT documented as of this encounter Care Teams Network Development Coordinator Relationship Specialty Start Date End Date Elsewhere, Pcp PCP - General Family Medicine 06/30/23 documented as of this encounter
--- OUTSIDE RECORDS SUMMARY | 2023-10-18 14:23 | XMS_ITS | Encounter Summary ---
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 [address] [place] [phone] [facility] Referral ID Status Reason Start Date Expiration Date Visits Re quested Visits Authorized [id number] Closed 12/21/2022 12/20/2025 1 1 Encounter Details Date Type Department Care Team ([facility] st Contact Info) Description 07/05/2023 4:00 PM DRAW BENCH OPERATOR Office Visit Department of Neurology in [place], [place] [address] [place] [phone] Rome gR M.D. 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 Never 12/28/2021 Do you belong to any clubs o r organizations such as adventist groups, unions, fraternal or athletic groups, or [...] Answer Date Recorded PHQ-2 Score 0 10/25/2018 [facility] [place] of Occupat ional Health - Occupational Stress [...] living situation today? I have a [facility] place to live 07/02/2023 Education Answer Date Recorded What is the highest level of school you have completed or the highest degree you have received? 12th grade 12/28/2021 Sex and Gender Information Value Date Recorded Sex Assigned at Male 05/17/2018 12:10 PM DRAW BENCH OPERATOR Gender Identity Male 05/17/2018 12:10 PM DRAW BENCH OPERATOR Sexual Orientation Straight 05/17/2018 12 :10 PM DRAW BENCH OPERATOR documented as of this encounter Last Filed [...] 180 cm (5' 10.87) 07/05/2023 3:46 PM DRAW BENCH OPERATOR Body Mass Index 19.14 07/05/2023 3:46 PM DRAW BENCH OPERATOR documented in this encounter Progress Notes * Rmoe Rg M.D. - 07/05/2023 4:00 PM CST [...] know the response in a portal message. I would like to see the patient in 6 months with the following prescheduled tests: none. I spent 60 minutes face to face and non-face to face caring for the patient today. documented in this encounter Plan of Treatment Upcoming Encounters Date Type Department Care Team (Latest Contact Info) Description 10/21/2023 1:15 PM CDT Clinical Communication Virtual Review in [place], [place] 200 [place] [phone] 10/24/2023 2:00 PM CDT Clinical Support Department of Neurology in [address] [phone] Rome Rg M.D. [address] [place] [phone] 11/23/2023 3:00 PM CDT Office Visit Department of Neurology in [place], [place] [address] [place] [address] Rome Rg M.D. [address] [place] [phone] Scheduled Referrals Name Type Priority Associated Diagnoses [...] documented as of this encounter Care Teams Mold Insert Changer Relationship Specialty Start Date End Date Elsewhere, Pcp PCP - General Family Medicine 06/30/23 documented as of this encounter
--- OUTSIDE RECORDS SUMMARY | 2023-10-18 14:23 | XMS_ITS | Referral Summary ---
Author Organization [facility] Address [address] [place] [address] Care Team Providers Care Animal Rescuer Name Role Phone Elsewhere, Pcp Primary Care Provider Unavailabl e Source Comments Patient records contain information from all sites at [facility]. For routine questions regarding patient records, call [phone] during business hours, M-F 8:00 AM - 5:00 PM Central Time. Record requests for emergency care only can be directed to [phone] at any time.[facility] Encounters Date Type Department Care Team Description 09/22/2023 Refill Department of Neurology in [place], [place] [address] [place] [phone] Rome Rg M.D. Med Refill 09/13/2023 Clinical Communication Department of Neurology in [place], [place] [address] [place] [phone] Rome Rg M.D. briviact from Last 3 Months Allergies Active Allergy [...] drink = 0.6 oz pur e alcohol) [facility] Utilities Answer Date Recorded In the past 12 months has e [employer], gas, oil, or water [employer] threatened to shut off services in your [...] week 12/28/2021 How often do you attend holiness or sabianism serv ices? Never 12/28/2021 Do you belong to any clubs o r organizations such as holiness groups, unions, fraternal or athletic groups, or [...] Answer Date Recorded PHQ-2 Score 0 10/25/2018 [facility] [place] of Occupat ional Health - Occupational Stress [...] your living situation today? I have a [facility] place to live 07/02/2023 Education Answer Date Recorded What is the highest level of school you have completed or the highest degree you have received? 12th grade 12/28/2021 Sex and Gender Information Value Date Recorded Sex Assigned at Male 05/17/2018 12:10 PM GROUNDS MANAGER Gender Identity Male 05/17/2018 12:10 PM GROUNDS MANAGER Sexual Orientation Straight 05/17/2018 12 :10 PM GROUNDS MANAGER Last Filed Vital Signs Vital Sign Reading [...] 180 cm (5' 10.87) 07/05/2023 3:46 PM GROUNDS MANAGER Body Mass Index 19.14 07/05/2023 3:46 PM GROUNDS MANAGER Plan of Treatment Upcoming Encounters Date Type Department Care Team (Latest Contact Info) Description 10/21/2023 1:15 PM CDT Clinical Communication Virtual Review in [place], [place] [address] [place] [phone] 10/24/2023 2:00 PM CDT Clinical Support Department of Neurology in [place], [place] [address] [place] [phone] Rome Rg M.D. [address] [place] [phone] 11/23/2023 3:00 PM CDT Office Visit Department of Neurology in [place], [place] [address] [place] [phone] Rome Rg M.D. [address] [place] [phone] Medical Devices Implanted Type Area District Associate Judge Device Identifier Shelf Expiration Date Model / Serial / Lot Drywall Professional Shunt Implanted:04/04 (Quantity not on file) Shunt Other Brain Description:EXPEDITER SERVICE ORDER Shunt Advance Directives For more information, please contact: [phone] * Full Code (Latest Code Status on File) Date Activated Date Inactivated Comments 12/30/2020 8:19 AM 12/31/2020 2:28 PM Question Answer Comments Full Code: Discussed Care Teams Animal Rescuer Relationship Specialty Start Date End Date Elsewhere, Pcp PCP - General Family Medicine 06/30/23
--- OUTSIDE RECORDS SUMMARY | 2023-10-18 14:23 | XMS_ITS | Encounter Summary ---
Author Organization [facility] Address [address] [place] [address] Care Team Providers Care Radiographer Name Role Phone Elsewhere, Pcp Primary Care Provider Unavailabl e Reason for Visit * Reason Comments Med Refill Encounter Details Date Type Department Care Team (Late st Contact Info) Description 09/22/2023 Refill Department of Neurology in [place], [place] [address] [place] [phone] Rome Rg M.D. [address] [place] [phone] Med Refill Social History Tobacco Use Types Packs/Day Years Used Date Smoking Tobacco: Never Smokeless Tobacco: Never Alcohol Use Standard Drinks/Week Comments No 0 (1 standard drink = 0.6 oz pur e alcohol) [facility] Utilities Answer Date Recorded In the past 12 months has [facility] [employer], gas, oil, or water [employer] threatened to shut off services in your [...] week 12/28/2021 How often do you attend islam or episcopal serv ices? Never 12/28/2021 Do you belong to any clubs o r organizations such as islam groups, unions, fraternal or athletic groups, or [...] Answer Date Recorded PHQ-2 Score 0 10/25/2018 [facility] - [facility]ational Stress Questionnaire Answer [...] your living situation today? I have a [facility] place to live 07/02/2023 Education Answer Date Recorded What is the highest level of school you have completed or the highest degree you have received? 12th grade 12/28/2021 Sex and Gender Information Value Date Recorded Sex Assigned at Male 05/17/2018 12:10 PM STEWARD/STEWARDESS Gender Identity Male 05/17/2018 12:10 PM STEWARD/STEWARDESS Sexual Orientation Straight 05/17/2018 12 :10 PM STEWARD/STEWARDESS documented as of this encounter Plan of Treatment Upcoming Encounters Date Type Department Care Team (Latest Contact Info) Description 10/21/2023 1:15 PM CDT Clinical Communication Virtual Review in [place], [place] 200 [place] [phone] 10/24/2023 2:00 PM CDT Clinical Support Department of Neurology in [place], [place] [address] [place] [phone] Rome Rg M.D. [address] [place] [phone] 11/23/2023 3:00 PM CDT Office Visit Department of Neurology in [address] [phone] Rome Rg M.D. 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
--- OUTSIDE RECORDS SUMMARY | 2023-10-18 14:23 | XMS_ITS | Clinical Summary ---
Author Organization [facility] Address [place], [place] [address] Care Team Providers Care Coat Agent Name Role Phone Damion Meraz Primary Care Provider [phone] Allergies No known active allergies Medications Medication [...] this topic Tdap Completed 11/29/2012 Care Teams Coat Agent Relationship Specialty Start Date End Date Damion Meraz DO [address] [place] [address] PCP - General 01/09/18
--- OUTSIDE RECORDS SUMMARY | 2023-10-18 14:23 | XMS_ITS ---
Author Organization [facility] Address [address] [place] [address] Care Team Providers Care Radio Broadcaster Name Role Phone Unavailable Unavailable Unavailable Surgery Details Not on file Complications Check Surgery Details section. Procedure Estimated Blood Loss Check Surgery Details section. Procedure Findings Check Surgery Details section. Procedure Specimens Taken Check Surgery Details section.
== END 2023-10-18 14:19 | disposition home or self-care (01) ==
PROVIDERS: PCP Family Medicine; Visit Provider Family Medicine
DX: Z13.228 Encounter for screening for other metabolic disorders (principal); Z13.220 Encounter for screening for lipoid disorders; Z13.0 Encounter for screening for diseases of the blood and blood-forming organs and certain disorders involving the immune mechanism; Z13.818 Encounter for screening for other digestive system disorders
CPT/HCPCS: 80048; 80061; 84460; 85025

== ENCOUNTER 2023-11-30 15:00 | Outpatient (RCR) | payer OTHER, SELFPAY | END 2024-01-20 11:28 | disposition home or self-care (01) | PROVIDERS: PCP Family Medicine; Visit Provider Family Medicine | DX: M54.50 Low back pain, unspecified (principal); Z51.89 Encounter for other specified aftercare | CPT/HCPCS: 97110; 97161 ==